=== PATIENT | male | born 1985 | race African-American/Black ===

== ENCOUNTER 2021-09-26 20:33 | Inpatient (IN) | payer OTHER ==
[2021-09-26] MEDS ORDERED: METHOCARBAMOL 500 MG TABLET PO PRN (22:56)
[2021-09-26] MEDS ORDERED: BISMUTH SUBSALICYLATE 524 MG/30 ML PO PRN (22:56)
[2021-09-26] MEDS ORDERED: MAG HYDROX/AL HYDROX/SIMETH 30 ML UNIT-DOSE CUP PO PRN (22:56)
[2021-09-26] MEDS ORDERED: DICYCLOMINE HCL 10 MG CAPSULE PO PRN (22:56)
[2021-09-26] MEDS ORDERED: BENZOCAINE/MENTHOL (CHLORASEPTIC ) LOZENGE MM PRN (22:56)
[2021-09-26] MEDS ORDERED: ACETAMINOPHEN 325 MG TABLET (FP) PO PRN ×2 (22:56)
[2021-09-26] MEDS ORDERED: LOPERAMIDE HCL 2 MG CAPSULE PO PRN (22:56)
[2021-09-26] MEDS ORDERED: hydrOXYzine PAMOATE 25 MG CAPSULE (FP) PO PRN (22:56)
[2021-09-26] MEDS ORDERED: MAGNESIUM HYDROX 2400MG/30ML ORAL SUSPENSION 30 ML CUP PO PRN (22:56)
[2021-09-26] MEDS ORDERED: IBUPROFEN 400 MG TABLET (FP) PO PRN (22:56)
[2021-09-26] MEDS ORDERED: MAGNESIUM CITRATE 300 ML BOTTLE PO PRN (22:56)
[2021-09-26] MEDS ORDERED: ONDANSETRON *ODT* 4 MG TABLET SL PRN (22:56)
[2021-09-26] MEDS ORDERED: diazePAM 5 MG TABLET PO PRN (22:59)
[2021-09-27 00:08] VITALS: BMI 22.8
[2021-09-27] MEDS: diazePAM 5 MG TABLET PO SCH ×5 (05:40→23:30)
[2021-09-27 10:00] LABS: HEMATOCRIT 37.3 % (35.4-49); HEMOGLOBIN 12.1 GM/dL (11.7-16.9); MCHC 32.3 g/dl (32.0-35.9); MEAN CELL VOLUME 89.8 fl (80-96); MEAN PLT VOLUME 7.6 fl (7.5-11.1); PLATELET COUNT 277 10^3/uL (134-434); RBC 4.15 M/mm3 (4.00-5.60); RDW 15.5 % (11.9-15.9); WHITE BLOOD COUNT 6.7 K/mm3 (4.0-10.0)
[2021-09-27] MEDS: PRENATAL VITAMINS W/ FOLIC ACID TABLET (FP) PO SCH (10:48)
[2021-09-27 10:54] LABS: ALBUMIN 3.1 g/dl (3.4-5.0); CALCIUM 8.9 mg/dL (8.5-10.1)
[2021-09-27 10:57] LABS: CREATININE 0.9 mg/dL (0.55-1.3)
[2021-09-27 10:58] LABS: BILIRUBIN,TOTAL 0.5 mg/dL (0.2-1)
[2021-09-27 10:59] LABS: TOT PROT 6.4 g/dl (6.4-8.2)
[2021-09-27] MEDS ORDERED: PNEUMOC 20-VAL CONJ-DIP CRM/PF 0.5 ML SYRINGE IM ONE (12:00)
[2021-09-27] MEDS: MELATONIN 5 MG TABLETS PO SCH (23:16)
[2021-09-27] MEDS: THIAMINE HCL 100 MG TABLET (FP) PO SCH (23:16)
[2021-09-28] MEDS: diazePAM 5 MG TABLET PO SCH ×3 (06:28→22:59)
[2021-09-28] MEDS: PRENATAL VITAMINS W/ FOLIC ACID TABLET (FP) PO SCH (11:02)
[2021-09-28] MEDS: THIAMINE HCL 100 MG TABLET (FP) PO SCH (22:59)
[2021-09-28] MEDS: MELATONIN 5 MG TABLETS PO SCH (22:59)
[2021-09-29] MEDS: diazePAM 5 MG TABLET PO SCH ×2 (06:28→18:46)
[2021-09-29] MEDS: PRENATAL VITAMINS W/ FOLIC ACID TABLET (FP) PO SCH (09:30)
[2021-09-29 16:10] LABS: SARS-CoV-2 NAA Detected (Not Detected)
[2021-09-29] MEDS: MELATONIN 5 MG TABLETS PO SCH (23:29)
[2021-09-29] MEDS: THIAMINE HCL 100 MG TABLET (FP) PO SCH (23:30)
[2021-09-30] MEDS ORDERED: diazePAM 5 MG TABLET PO ONE (06:00)
[2021-09-30] MEDS: PRENATAL VITAMINS W/ FOLIC ACID TABLET (FP) PO SCH (09:45)
[2021-09-30] MEDS: MELATONIN 5 MG TABLETS PO SCH (23:13)
[2021-09-30] MEDS: THIAMINE HCL 100 MG TABLET (FP) PO SCH (23:14)
[2021-10-01] MEDS: PRENATAL VITAMINS W/ FOLIC ACID TABLET (FP) PO SCH (11:14)
[2021-10-01] MEDS: THIAMINE HCL 100 MG TABLET (FP) PO SCH (23:11)
[2021-10-01] MEDS: MELATONIN 5 MG TABLETS PO SCH (23:11)
[2021-10-02] MEDS: PRENATAL VITAMINS W/ FOLIC ACID TABLET (FP) PO SCH (10:47)
[2021-10-02] MEDS: THIAMINE HCL 100 MG TABLET (FP) PO SCH (22:48)
[2021-10-02] MEDS: MELATONIN 5 MG TABLETS PO SCH (22:48)
[2021-10-03] MEDS: PRENATAL VITAMINS W/ FOLIC ACID TABLET (FP) PO SCH (10:23)
[2021-10-03 19:08] VITALS: BP 107/69; PULSE 92; TEMP 96.9
== END 2021-10-03 19:47 | disposition short-term general hospital (02) | DRG 896 ==
LOC: YASAS 20:33 → Y3N 23:27
PROVIDERS: ADMIT Allergy & Immunology; ATTEND Surgery
PROC: HZ2ZZZZ Detoxification Services for Substance Abuse Treatment (ICD-10-PCS; principal; 2021-09-26)
DX: F10.230 Alcohol dependence with withdrawal, uncomplicated (principal); U07.1 COVID-19; F14.20 Cocaine dependence, uncomplicated; R45.851 Suicidal ideations; F17.210 Nicotine dependence, cigarettes, uncomplicated; F20.9 Schizophrenia, unspecified; E88.09 Other disorders of plasma-protein metabolism, not elsewhere classified; E11.9 Type 2 diabetes mellitus without complications; R26.89 Other abnormalities of gait and mobility
CPT/HCPCS: 36415; 80053; 84520; 85027; 86780; C9803-CS; U0003; U0005